=== PATIENT | male | born 1955 | race Caucasian/White ===

== ENCOUNTER → 2018-07-14 13:41 | Outpatient (CLI) | payer MEDICARE, OTHER, SELFPAY | PROVIDERS: Visit Provider Family Medicine | DX: S81.801A Unspecified open wound, right lower leg, initial encounter (principal); I70.201 Unspecified atherosclerosis of native arteries of extremities, right leg | CPT/HCPCS: 11042; 11045; 99203; 99212 ==

== ENCOUNTER → 2018-07-14 16:10 | Outpatient (CLI) | payer MEDICARE, OTHER, SELFPAY ==
[2018-07-14 18:05] LABS: BUN Creatinine Ratio 15.5 (6-22); Blood Urea Nitrogen 17 mg/dL (9-20); Calcium 9.2 mg/dL (8.4-10.2); Carbon Dioxide 30 mmol/L (22-32); Chloride 100 mmol/L (98-107); Estimated Glomerular Filt Rate > 60.0 mL/min (>60); Glucose 100 mg/dL (80-110); HEMOLYSIS < 15 (0-50); Sodium 141 mmol/L (137-145)
== END ==
PROVIDERS: Visit Provider Family Medicine
DX: S81.801A Unspecified open wound, right lower leg, initial encounter (principal)
CPT/HCPCS: 36415; 80048

== ENCOUNTER → 2018-07-21 15:30 | Outpatient (CLI) | payer MEDICARE, OTHER, SELFPAY | PROVIDERS: PCP Internal Medicine; Visit Provider Family Medicine | DX: S81.801A Unspecified open wound, right lower leg, initial encounter (principal); I70.201 Unspecified atherosclerosis of native arteries of extremities, right leg; I70.202 Unspecified atherosclerosis of native arteries of extremities, left leg | CPT/HCPCS: 11042; 87070; 87205; 93922 ==

== ENCOUNTER 2019-09-09 17:20 | Emergency (ER) | payer OTHER, MEDICARE, SELFPAY ==
[2019-09-09 17:27] VITALS: BP 169/95; PULSE 95; RESP 18; TEMP 37; O2SAT 98; BMI 25.1
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
== END 2019-09-09 18:46 | disposition home or self-care (01) ==
PROVIDERS: Emergency Provider Emergency Medicine; PCP Internal Medicine
DX: S20.211A Contusion of right front wall of thorax, initial encounter (principal); S80.811A Abrasion, right lower leg, initial encounter; M79.605 Pain in left leg; V49.40XA Driver injured in collision with unspecified motor vehicles in traffic accident, initial encounter; W22.11XA Striking against or struck by driver side automobile airbag, initial encounter
CPT/HCPCS: 71101; 73552; 99283

== ENCOUNTER 2020-11-06 10:42 | Emergency (ER) | payer MEDICARE, OTHER, SELFPAY ==
[2020-11-06] VITALS (16 sets, daily range): BP systolic 114–153; BP diastolic 67–81; PULSE 63–94; RESP 11–41; TEMP 36.7; O2SAT 96–99; BMI 24.7
--- NOTE | 2020-11-06 11:55 | ED.EXTPRO ---
HPI - Extremity Problem General Chief complaint: Extremity Problem,Nontraumatic Stated complaint: right foot cold and loosing sensation Time Seen by Provider: 11/06/20 11:48 History of Present Illness HPI Narrative: Patient is a 65-year-old male with peripheral vascular disease who has bilateral iliac stents. He apparently had an exclusion in both of them last week where he states at [facility]. He says they cleaned them out as best they could and they were both clotted off and he was released. He has been on Lovenox shots and taking Coumadin however his INR most recently was 10. He says today he woke up in they noted his right foot was cooler than the left. The left 1 is always a little bit warmer but the right 1 was cool. They were never able to find a pulse on the right foot. Worried that there may be another occlusion. Related Data Home Medications Medication Instructions Recorded Confirmed amlodipine 5 mg tablet 5 mg PO DAILY 07/21/18 07/21/18 aspirin 81 mg tablet,delayed 81 mg PO DAILY 07/21/18 07/21/18 release (Adult Aspirin Regimen) atorvastatin 80 mg tablet 80 mg PO DAILY 07/21/18 07/21/18 cholecalciferol (vitamin D3) 25 1,000 unit PO DAILY 07/21/18 07/21/18 mcg (1,000 unit) capsule gabapentin 300 mg capsule 300 mg PO DAILY 07/21/18 07/21/18 hydrocodone 5 mg-acetaminophen 325 1 tab PO Q4-6H PRN 07/21/18 07/21/18 mg tablet melatonin 3 mg tablet 3 mg PO BEDTIME PRN 07/21/18 07/21/18 pantoprazole 40 mg tablet,delayed 40 mg PO DAILY 07/21/18 07/21/18 release (Protonix) Allergies Allergy/AdvReac Type Severity Reaction Status Date / Time No Known Drug Allergies Allergy Verified 09/09/19 17:27 Review of Systems Review of Systems Narrative: GENERAL: Denies chills, fatigue, malaise, fever, sweats, travel HEENT: Denies sinus pain, ear pain, sore throat, difficulty swallowing, neck pain RESPIRATORY: Denies dyspnea, cough, wheezing, hemoptysis, sputum. CARDIOVASCULAR: Denies chest pain, palpitations, orthopnea, edema GASTROINTESTINAL: Denies nausea, vomiting, abdominal pain, diarrhea, constipation, melena. : Denies dysuria, frequency, incontinence, hematuria, urinary retention, flank pain. MUSCULOSKELETAL: See HPI SKIN: No rash, no erythema, no pruritus NEUROLOGIC: Denies weakness, dizziness, headache, numbness, change in speech, confusion PSYCHIATRIC: No concerning psychosocial issues. 12 point review of systems is negative except for those stated above and HPI Patient History Medical History (Updated 11/06/20 @ 18:39 by Nena Albright DO) Gastroesophageal reflux disease High cholesterol Social History Smoking Status: Never smoker Smoking Status: Never smoker Substance Use Type: does not use Exam Initial Vital Signs Initial Vital Signs: Vital Signs Temperature 98.0 F 11/06/20 10:51 Pulse Rate 94 H 11/06/20 10:51 Respiratory Rate 18 11/06/20 10:51 Blood Pressure 118/70 11/06/20 10:51 Pulse Oximetry 97 11/06/20 10:51 GENERAL: Well-appearing, well-nourished and in no acute distress. HEENT: Head atraumatic,EOMI, pupils reactive, face symmetric, moist mucous membranes CARDIOVASCULAR: Regular rate and rhythm without murmurs, rubs or gallops. RESPIRATORY: Breath sounds equal bilaterally, no wheezes rales or rhonchi. ABDOMEN: Soft, nontender. Normoactive bowel sounds all 4 quadrants. No guarding or rebound. EXTREMITIES: Normal range of motion, no clubbing or edema. Neurovascularly intact Right foot is cooler to touch than the left decreased cap refill not extremely tender. NEUROLOGICAL: Alert and oriented x4.Normal gait and speech. SKIN: Incision sites in abdomen appear clean and dry. Left side is more swollen and hard but no erythema Course Orders Ordered: ED Orders 11/06/20 11:17 Acetaminophen Stat Complete Blood Count AUTO DIFF Stat Comprehensive Metabolic Panel Stat Partial Thromboplastin Time Stat Prothrombin Time INR Stat 11/06/20 12:50 CT angio abd aorta runoff Stat 11/06/20 14:54 US arterial duplex LE BI Stat Discontinued Medications Acetaminophen (Acetaminophen 325 Mg Tablet) 975 mg PO NOW ONE Stop: 11/06/20 12:42 Last Admin: 11/06/20 12:44 Dose: 975 mg Documented by: ROSANNE Acetaminophen (Acetaminophen 325 Mg Tablet) 975 mg PO NOW ONE Stop: 11/06/20 18:33 Last Admin: 11/06/20 18:39 Dose: Not Given Documented by: ANASTASIIA Phytonadione (Phytonadione (Vit K1) 5 Mg Tablet) 5 mg PO NOW ONE Stop: 11/06/20 18:25 Last Admin: 11/06/20 18:40 Dose: 5 mg Documented by: ANASTASIIA Vital Signs Vital signs: Vital Signs - 8 hr 11/06/20 12:41 11/06/20 13:00 11/06/20 13:30 Pulse Rate 82 72 80 Respiratory Rate 15 21 13 Blood Pressure 148/70 H 138/77 143/76 H Pulse Oximetry 98 99 96 11/06/20 14:00 11/06/20 14:02 11/06/20 14:30 Pulse Rate 73 80 73 Respiratory Rate 15 17 18 Blood Pressure 122/70 138/72 Pulse Oximetry 97 98 96 11/06/20 15:00 11/06/20 15:30 11/06/20 16:00 Pulse Rate 77 64 71 Respiratory Rate 41 H 11 L 31 H Blood Pressure 153/81 H 140/71 129/77 Pulse Oximetry 98 98 97 11/06/20 16:30 11/06/20 17:00 11/06/20 17:30 Pulse Rate 69 67 65 Respiratory Rate 18 18 23 Blood Pressure 127/73 123/69 132/68 Pulse Oximetry 96 96 97 11/06/20 17:42 11/06/20 18:00 11/06/20 18:30 Pulse Rate 63 67 67 Respiratory Rate 15 16 16 Blood Pressure 148/71 H 127/68 114/67 Pulse Oximetry 97 98 98 MDM - Extremity (Nontraumatic) Lab Data Result diagrams: 11/06/20 11:17 11/06/20 11:17 Labs: Lab Results 11/06/20 11/06/20 11/06/20 Range/Units 11:17 11:17 11:17 WBC 9.7 (4.5-11.0) X10^3/uL RBC 4.09 L (4.5-5.9) X10^6/uL Hgb 12.5 L (13.5-17.5) g/dL Hct 37.8 L (41-53) % MCV 92.4 (80-100) fL MCH 30.6 (26-34) PG MCHC 33.2 (30-36) % RDW 14.3 (11.6-14.8) % Plt Count 307 (150-400) X10^3/uL Neut % (Auto) 73.3 (50-75) % Lymph % (Auto) 15.8 L (25-40) % Logan % (Auto) 7.0 (3-14) % Eos % (Auto) 3.2 (2-4) % Baso % (Auto) 0.7 (0-2) % Neut # (Auto) 7100 H (6783-9254) /uL Lymph # (Auto) 1500 (0690-3551) /uL Logan # (Auto) 700 (0-900) /uL Eos # (Auto) 300 (0-450) /uL Baso # (Auto) 100 (0-100) /uL PT 127.5 H (10.1-12.7) SECONDS INR 10.7 H* (0.9-1.3) APTT 53 H (26.4-36.2) SECONDS Sodium 139 (137-145) mmol/L Potassium 4.0 (3.4-5.1) mmol/L Chloride 107 (98-107) mmol/L Carbon Dioxide 24 (22-32) mmol/L BUN 18 (9-20) mg/dL Creatinine 0.88 (0.66-1.25) mg/dL Estimated GFR > 60.0 (>60) mL/min BUN/Creatinine Ratio 20.5 (6-22) Glucose 162 H (80-110) mg/dL Calcium 8.7 (8.4-10.2) mg/dL Total Bilirubin 0.6 (0.2-1.3) mg/dL AST 69 H (17-59) IU/L ALT 80 H (<50) IU/L Alkaline Phosphatase 108 (38-126) U/L Total Protein 7.5 (6.3-8.2) g/dL Albumin 3.7 (3.5-5.0) g/dL Globulin 3.8 (1.7-4.1) g/dL Albumin/Globulin Ratio 1.0 (1.0-2.8) Acetaminophen (10-30) ug/mL 11/06/20 Range/Units 11:17 WBC (4.5-11.0) X10^3/uL RBC (4.5-5.9) X10^6/uL Hgb (13.5-17.5) g/dL Hct (41-53) % MCV (80-100) fL MCH (26-34) PG MCHC (30-36) % RDW (11.6-14.8) % Plt Count (150-400) X10^3/uL Neut % (Auto) (50-75) % Lymph % (Auto) (25-40) % Logan % (Auto) (3-14) % Eos % (Auto) (2-4) % Baso % (Auto) (0-2) % Neut # (Auto) (8445-9922) /uL Lymph # (Auto) (0186-0557) /uL Logan # (Auto) (0-900) /uL Eos # (Auto) (0-450) /uL Baso # (Auto) (0-100) /uL PT (10.1-12.7) SECONDS INR (0.9-1.3) APTT (26.4-36.2) SECONDS Sodium (137-145) mmol/L Potassium (3.4-5.1) mmol/L Chloride (98-107) mmol/L Carbon Dioxide (22-32) mmol/L BUN (9-20) mg/dL Creatinine (0.66-1.25) mg/dL Estimated GFR (>60) mL/min BUN/Creatinine Ratio (6-22) Glucose (80-110) mg/dL Calcium (8.4-10.2) mg/dL Total Bilirubin (0.2-1.3) mg/dL AST (17-59) IU/L ALT (<50) IU/L Alkaline Phosphatase (38-126) U/L Total Protein (6.3-8.2) g/dL Albumin (3.5-5.0) g/dL Globulin (1.7-4.1) g/dL Albumin/Globulin Ratio (1.0-2.8) Acetaminophen < 10 L (10-30) ug/mL Imaging Data CT aorta run off: Radiologist's Impression: PROCEDURE: CT ANGIO ABD AORTA RUNOFF INDICATIONS: bilateral stents cool right foot TECHNIQUE: After the administration of intravenous contrast, 2.5 mm sections acquired from T12 to the feet, with optional delayed image acquisition from the knees to the feet. 3-dimensional maximum intensity projection (MIP) coronal and sagittal reformats, and/or 3-dimensional volume rendering reformatting was then performed. For radiation dose reduction, the following was used: automated exposure control. COMPARISON: [facility], CT, ANGIOGRAPHY ABDOMEN AND PELVIS, 09/19/2015, 8:17. FINDINGS: Image quality: Excellent. Extravascular tissues: Lung bases are clear. Heart size is normal. Liver is enlarged.. Gallbladder demonstrates dependent calcifications without wall thickening. . Biliary system is non dilated. Pancreas enhances normally. Spleen is normal in size and enhancement. No adrenal nodules. Kidneys are normal in size and enhancement, without hydronephrosis. Non opacified bowel loops demonstrate normal wall thickness and enhancement. No free fluid or air. No retroperitoneal or mesenteric adenopathy. No ventral hernias. Bladder wall thickness is normal. No inguinal hernias or adenopathy. No suspicious bony lesions. No vertebral body compression fractures. Hiatal hernia is present. There are prominent fluid collections with air identified within the groin bilaterally, the largest on the left measuring 4.3 x 5.4 cm. They become contiguous with the femoral vessels and likely related to recent intervention. Abdominal aorta: Bypass graft is noted within the distal aorta i consistent with aorto bi femoral graft. The aortic portion demonstrates partial thrombosis. Right lower extremity: There are no areas of hemodynamically significant stenosis, vascular occlusion or aneurysmal dilation within the iliac or femoral artery. Artery is widely patent. There are multiple areas of short-segment stenosis secondary to vascular calcifications within the superficial femoral artery predominantly less than 50%. The profundal artery appears patent although markedly diminutive. The popliteal artery becomes markedly diminutive with calcification. It is difficult to detect vascular flow. There are markedly diminutive heavily calcified runoff vessels. Very minimal atretic flow is identified within the posterior tibial artery extending to the foot as well as peroneal artery to the calf. The anterior tibial artery demonstrates very minimal flow within the proximal most portion without visualized mid and distal flow. Left lower extremity: The iliac and common femoral arteries are patent. There is clot identified within the proximal profundal artery with distal reconstitution. The superficial femoral artery is occluded at the origin. There is distal reconstitution with vascular flow identified in the popliteal artery. A three-vessel runoff is present. Markedly atretic anterior/posterior tibial and peroneal vessels are identified to the level of the foot. IMPRESSION: 1. Aortobifemoral graft is present with partial thrombosis in the aortic portion, appearing acute/subacute. 2. There is a partially occlusive clot within the proximal left profundal artery, suspected to be acute/subacute. 3. Left superficial femoral artery occlusion. While this may be chronic, chronicity is somewhat indeterminate. Recommend correlation with prior exams or surgical intervention. 4. Multiple areas of short-segment stenosis within the right superficial femoral artery as well as diminutive appearance of the right profunda artery. 5. Markedly diminutive and calcified runoff vessels on the right with the anterior tibial artery appearing occluded proximally. This is also of indeterminate age. 6. Poorly visualized flow within the right popliteal artery suspicious for acute occlusion. The above findings were discussed with Dr. Nena Albright on 11/06/2020 at 3:00 p.m.. Dictated by: Maggie Olivas M.D. on 11/06/2020 at 14:00 Approved by: Maggie Olivas M.D. on 11/06/2020 at 15:30 US artery: Radiologist's Impression: PROCEDURE: US ARTERIAL DUPLEX LE BI INDICATIONS: POSSIBLE BILATERAL GROIN PSEUDOANEURYSMS TECHNIQUE: Color and pulse Doppler interrogation was performed of both lower extremity arterial systems, with image documentation. COMPARISON: [facility], CT, CT ANGIO ABD AORTA RUNOFF, 11/06/2020, 12:25. FINDINGS: Right groin: There is soft tissue edema in groin bilaterally. The right common femoral artery and veins are both patent. No definitive pseudoaneurysm or AV fistula is identified. There is a 4.0 x 1.7 x 3.8 cm fluid collection in the right groin compatible with a hematoma. Left lower extremity: There is soft tissue edema in groin bilaterally. The left common femoral artery and veins are both patent. No definitive pseudoaneurysm or AV fistula is identified. There is a 8.0 x 3.2 x 4.9 cm fluid collection in the left groin compatible with a hematoma. IMPRESSION: 1. No definitive pseudoaneurysms or AV fistulas. The examination, however, is limited because of prominent soft tissue edema in the groin bilaterally. 2. There is a 4.0 x 1.7 x 3.8 cm fluid collection in the right groin consistent with a hematoma given recent procedure. 3. There is a 8.0 x 3.2 x 4.9 cm fluid collection in the left groin compatible with a hematoma given the recent procedure. Dictated by: Gogo Mackenzie M.D. on 11/06/2020 at 17:12 Approved by: Gogo Mackenzie M.D. on 11/06/2020 at 17:25 [facility] Narrative Medical decision making narrative: Patient is found to have supratherapeutic INR of 10 with no active bleeding. Difficult to tell if CT findings are actually acute or chronic. Patient is really asymptomatic. His feels his feet every day noticed that the right 1 with slightly cooler than the left today. He has no pain or difficulty walking. He previously had difficulty walking when his stents were occluded last week. 1800 Dr. Kraus vascular surgery at [facility] has reviewed CT today. She says that there is severe clot burden which is what she would expect. Does not seem to have any new findings today. Does recommend vitamin K today and holding Coumadin for his supratherapeutic INR. She does recommending continuing Lovenox. Requests his INR be recheck tomorrow, I recommend he come to the emergency department for an INR check. She states that they are happy to see and follow up with him in 2 days on , as opposed to next week. Patient states he is actually supposed to see his vascular surgeon Dr. Ramirez in [place] next week on November 14.I Recommend he see both [facility] this week and that physician next week Discharge Plan Departure Patient Disposition: Home Clinical Impression: Peripheral vascular disease, Elevated INR Instructions: Peripheral Artery Disease Activity Restrictions/Additional Instructions: *You have been diagnosed with peripheral vascular disease and elevated INR *What to do: At this time you need to have your INR recheck tomorrow. You are more than welcome to come back to the emergency department have it rechecked [facility] should call and schedule follow-up appointment for . It is important that we monitor your INR. *Continue to take medications as directed HOLD COUMADIN UNTIL FURTHER INSTRUCTIONS YOU MAY TAKE LOVENOX TOMORROW *Follow up with your primary care provider in 2-3 days *Return to ER if you should have bleeding, weakness or pain in feet, or any new, worsening or concerning symptoms Prescriptions: No Action atorvastatin 80 mg tablet 80 mg PO DAILY RF: 0 hydrocodone-acetaminophen 5-325 mg tablet 1 tab PO Q4-6H PRNRF: 0 melatonin 3 mg tablet 3 mg PO BEDTIME PRNRF: 0 amlodipine 5 mg tablet 5 mg PO DAILY RF: 0 aspirin [Adult Aspirin Regimen] 81 mg tablet,delayed release (DR/EC) 81 mg PO DAILY RF: 0 pantoprazole [Protonix] 40 mg tablet,delayed release (DR/EC) 40 mg PO DAILY RF: 0 gabapentin 300 mg capsule 300 mg PO DAILY RF: 0 cholecalciferol (vitamin D3) 1,000 unit capsule 1,000 unit PO DAILY RF: 0 Referrals: Rosi Samayoa MD [Primary Care Provider] - Monae Ramirez MD [Non-Staff] -
[2020-11-06 12:17] LABS: Add Manual Diff / Slide Review NO; Basophils Absolute Auto 100 /uL (0-100); Basophils Percent Auto 0.7 % (0-2); Eosinophils Absolute Auto 300 /uL (0-450); Eosinophils Percent Auto 3.2 % (2-4); Hematocrit 37.8 % (41-53); Hemoglobin 12.5 g/dL (13.5-17.5); Lymphocytes Absolute Auto 1500 /uL (1100-4500); Lymphocytes Percent Auto 15.8 % (25-40); Mean Corpuscular HGB Conc 33.2 % (30-36); Mean Corpuscular Hemoglobin 30.6 PG (26-34); Mean Corpuscular Volume 92.4 fL (80-100); Monocytes Absolute Auto 700 /uL (0-900); Neutrophils Absolute Auto 7100 /uL (1500-7000); Neutrophils Percent Auto 73.3 % (50-75); Platelet Count 307 X10^3/uL (150-400); Red Blood Cell Count 4.09 X10^6/uL (4.5-5.9); Red Cell Distribution Width 14.3 % (11.6-14.8); White Blood Cell Count 9.7 X10^3/uL (4.5-11.0)
[2020-11-06 12:21] LABS: PTT Partial Thromboplastin Tim 53 SECONDS (26.4-36.2)
[2020-11-06 12:23] LABS: Alanine Aminotransferase 80 IU/L (<50); Albumin 3.7 g/dL (3.5-5.0); Alkaline Phosphatase 108 U/L (38-126); Aspartate Aminotransferase 69 IU/L (17-59); BUN Creatinine Ratio 20.5 (6-22); Bilirubin Total 0.6 mg/dL (0.2-1.3); Blood Urea Nitrogen 18 mg/dL (9-20); Calcium 8.7 mg/dL (8.4-10.2); Carbon Dioxide 24 mmol/L (22-32); Chloride 107 mmol/L (98-107); Estimated Glomerular Filt Rate > 60.0 mL/min (>60); Globulin 3.8 g/dL (1.7-4.1); Glucose 162 mg/dL (80-110); HEMOLYSIS < 15 (0-50); Sodium 139 mmol/L (137-145); Total Protein 7.5 g/dL (6.3-8.2)
[2020-11-06 12:25] LABS: Prothrombin Time 127.5 SECONDS (10.1-12.7)
[2020-11-06 12:28] LABS: INR 10.7 (0.9-1.3)
[2020-11-06] MEDS: ACETAMINOPHEN 325 MG TABLET 975 MG PO (12:44)
--- NOTE | 2020-11-06 12:50 | DI.CT.S_ITS ---
PROCEDURE: CT ANGIO ABD AORTA RUNOFF INDICATIONS: bilateral stents cool right foot TECHNIQUE: After the administration of intravenous contrast, 2.5 mm sections acquired from T12 to the feet, with optional delayed image acquisition from the knees to the feet. 3-dimensional maximum intensity projection (MIP) coronal and sagittal reformats, and/or 3-dimensional volume rendering reformatting was then performed. For radiation dose reduction, the following was used: automated exposure control. COMPARISON: [facility], CT, ANGIOGRAPHY ABDOMEN AND PELVIS, 09/19/2015, 8:17. FINDINGS: Image quality: Excellent. Extravascular tissues: Lung bases are clear. Heart size is normal. Liver is enlarged.. Gallbladder demonstrates dependent calcifications without wall thickening. . Biliary system is non dilated. Pancreas enhances normally. Spleen is normal in size and enhancement. No adrenal nodules. Kidneys are normal in size and enhancement, without hydronephrosis. Non opacified bowel loops demonstrate normal wall thickness and enhancement. No free fluid or air. No retroperitoneal or mesenteric adenopathy. No ventral hernias. Bladder wall thickness is normal. No inguinal hernias or adenopathy. No suspicious bony lesions. No vertebral body compression fractures. Hiatal hernia is present. There are prominent fluid collections with air identified within the groin bilaterally, the largest on the left measuring 4.3 x 5.4 cm. They become contiguous with the femoral vessels and likely related to recent intervention. Abdominal aorta: Bypass graft is noted within the distal aorta i consistent with aorto bi femoral graft. The aortic portion demonstrates partial thrombosis. Right lower extremity: There are no areas of hemodynamically significant stenosis, vascular occlusion or aneurysmal dilation within the iliac or femoral artery. Artery is widely patent. There are multiple areas of short-segment stenosis secondary to vascular calcifications within the superficial femoral artery predominantly less than 50%. The profundal artery appears patent although markedly diminutive. The popliteal artery becomes markedly diminutive with calcification. It is difficult to detect vascular flow. There are markedly diminutive heavily calcified runoff vessels. Very minimal atretic flow is identified within the posterior tibial artery extending to the foot as well as peroneal artery to the calf. The anterior tibial artery demonstrates very minimal flow within the proximal most portion without visualized mid and distal flow. Left lower extremity: The iliac and common femoral arteries are patent. There is clot identified within the proximal profundal artery with distal reconstitution. The superficial femoral artery is occluded at the origin. There is distal reconstitution with vascular flow identified in the popliteal artery. A three-vessel runoff is present. Markedly atretic anterior/posterior tibial and peroneal vessels are identified to the level of the foot. IMPRESSION: 1. Aortobifemoral graft is present with partial thrombosis in the aortic portion, appearing acute/subacute. 2. There is a partially occlusive clot within the proximal left profundal artery, suspected to be acute/subacute. 3. Left superficial femoral artery occlusion. While this may be chronic, chronicity is somewhat indeterminate. Recommend correlation with prior exams or surgical intervention. 4. Multiple areas of short-segment stenosis within the right superficial femoral artery as well as diminutive appearance of the right profunda artery. 5. Markedly diminutive and calcified runoff vessels on the right with the anterior tibial artery appearing occluded proximally. This is also of indeterminate age. 6. Poorly visualized flow within the right popliteal artery suspicious for acute occlusion. The above findings were discussed with Dr. Nena Albright on 11/06/2020 at 3:00 p.m.. Dictated by: Maggie Olivas M.D. on 11/06/2020 at 14:00 Approved by: Maggie Olivas M.D. on 11/06/2020 at 15:30
--- NOTE | 2020-11-06 14:54 | DI.US.S_ITS ---
PROCEDURE: US ARTERIAL DUPLEX LE BI INDICATIONS: POSSIBLE BILATERAL GROIN PSEUDOANEURYSMS TECHNIQUE: Color and pulse Doppler interrogation was performed of both lower extremity arterial systems, with image documentation. COMPARISON: [facility], CT, CT ANGIO ABD AORTA RUNOFF, 11/06/2020, 12:25. FINDINGS: Right groin: There is soft tissue edema in groin bilaterally. The right common femoral artery and veins are both patent. No definitive pseudoaneurysm or AV fistula is identified. There is a 4.0 x 1.7 x 3.8 cm fluid collection in the right groin compatible with a hematoma. Left lower extremity: There is soft tissue edema in groin bilaterally. The left common femoral artery and veins are both patent. No definitive pseudoaneurysm or AV fistula is identified. There is a 8.0 x 3.2 x 4.9 cm fluid collection in the left groin compatible with a hematoma. IMPRESSION: 1. No definitive pseudoaneurysms or AV fistulas. The examination, however, is limited because of prominent soft tissue edema in the groin bilaterally. 2. There is a 4.0 x 1.7 x 3.8 cm fluid collection in the right groin consistent with a hematoma given recent procedure. 3. There is a 8.0 x 3.2 x 4.9 cm fluid collection in the left groin compatible with a hematoma given the recent procedure. Dictated by: Gogo Mackenzie M.D. on 11/06/2020 at 17:12 Approved by: Gogo Mackenzie M.D. on 11/06/2020 at 17:25
[2020-11-06 18:39] LABS: Acetaminophen < 10 ug/mL (10-30)
[2020-11-06] MEDS: PHYTONADIONE (VIT K1) 5 MG TABLET PO (18:40)
== END 2020-11-06 19:17 | disposition home or self-care (01) ==
PROVIDERS: Emergency Provider Emergency Medicine; PCP Internal Medicine
DX: I73.9 Peripheral vascular disease, unspecified (principal); R79.1 Abnormal coagulation profile
CPT/HCPCS: 36415; 75635; 80053; 80329; 85025; 85610; 85730; 93925; 99284; G0480

== ENCOUNTER 2020-11-07 08:51 | Emergency (ER) | payer MEDICARE, OTHER, SELFPAY ==
[2020-11-07 09:04] VITALS: BP 138/72; PULSE 79; RESP 17; TEMP 36.5; O2SAT 96
--- NOTE | 2020-11-07 09:05 | ED.RECABL ---
HPI - Recheck/Abnormal Lab/Rx General Chief Complaint: Recheck/Abnormal Lab/Rx Stated Complaint: still in pain from last night/recheck labs Time Seen by Provider: 11/07/20 08:53 Source: patient, family and old records reviewed History of Present Illness HPI narrative: This is a 65-year-old male who reports returns for repeat INR today. Patient was seen yesterday with concern for discoloration of his LEs lower extremities and pain after having bilateral iliac stents with occlusion of both last week when he was at [facility]. He states they cleaned the both out as well as they could but they were both clotted off. They put him on Lovenox shots and he was taking Coumadin but his outpatient INR was 10 and he was referred here to the emergency department. At that time they had noted that the color his feet for bluish in color and he had coolness. Patient worried there may be another occlusion. Patient was found to be INR of 10 here, case was discussed with his medical team [facility] he was given vitamin K and asked to return today for repeat INR for re-evaluation. Patient's coloration is improved. He has continued to have the same pain that he had had postoperatively starting Thursday through the weekend. He states not worsened but he has tried a dose of oral [place] at home with his usual gabapentin and Tylenol ibuprofen with minimal improvement. Patient states he does not wish to take oxycodone, he is reluctant to take most narcotics. Related Data Home Medications Medication Instructions Recorded Confirmed amlodipine 5 mg tablet 5 mg PO DAILY 07/21/18 07/21/18 aspirin 81 mg tablet,delayed 81 mg PO DAILY 07/21/18 07/21/18 release (Adult Aspirin Regimen) atorvastatin 80 mg tablet 80 mg PO DAILY 07/21/18 07/21/18 cholecalciferol (vitamin D3) 25 1,000 unit PO DAILY 07/21/18 07/21/18 mcg (1,000 unit) capsule gabapentin 300 mg capsule 300 mg PO DAILY 07/21/18 07/21/18 hydrocodone 5 mg-acetaminophen 325 1 tab PO Q4-6H PRN 07/21/18 07/21/18 mg tablet melatonin 3 mg tablet 3 mg PO BEDTIME PRN 07/21/18 07/21/18 pantoprazole 40 mg tablet,delayed 40 mg PO DAILY 07/21/18 07/21/18 release (Protonix) Previous Rx's Medication Instructions Recorded hydrocodone 5 mg-acetaminophen 325 1 tab PO Q6H PRN #10 tab 11/07/20 mg tablet Allergies Allergy/AdvReac Type Severity Reaction Status Date / Time No Known Drug Allergies Allergy Verified 09/09/19 17:27 Review of Systems Review of Systems ROS Unobtainable: All systems reviewed & are unremarkable except as noted in HPI and below Patient History Medical History (Updated 11/07/20 @ 09:08 by Becki Avina DO) Gastroesophageal reflux disease High cholesterol Social History Smoking Status: Never smoker Smoking Status: Never smoker Substance Use Type: does not use Exam Narrative Exam Narrative: GENERAL: Alert and oriented x three, well-nourished male in mild distress. Patient is seated in wheelchair which he arrived in. HEENT: Head normocephalic, atraumatic, EOMI, pupils reactive, face symmetric, moist mucous membranes NECK: Supple, full range of motion CARDIOVASCULAR: Regular rate and rhythm without murmurs, rubs or gallops. RESPIRATORY: Breath sounds equal bilaterally, no wheezes rales or rhonchi. ABDOMEN: Soft, nontender. Normoactive bowel sounds all 4 quadrants. No guarding or rebound, rigidity, no mass : No CVA tenderness EXTREMITIES: Normal range of motion, no clubbing or edema. Patient has sensation to touch in bilateral lower extremities. Cap refill is less than 2 seconds in both feet. No pallor or cyanosis appreciated. Palpable pulse. NEUROLOGICAL: Cranial nerves II through XII grossly intact. Moving all extremities SKIN: Warm, dry, no petechiae, no rashes or lesions. Initial Vital Signs Initial Vital Signs: Vital Signs Temperature 97.7 F 11/07/20 09:04 Pulse Rate 79 11/07/20 09:04 Respiratory Rate 17 11/07/20 09:04 Blood Pressure 138/72 11/07/20 09:04 Pulse Oximetry 96 11/07/20 09:04 Course Orders Ordered: Discontinued Medications Hydrocodone Bitart/Acetaminophen (Hydrocodone/Acet 5/325 Tablet) 2 tab PO NOW ONE Stop: 11/07/20 09:06 Last Admin: 11/07/20 09:27 Dose: 2 tab Documented by: AUPDIKE Reevaluation(s) Reevaluation #1: Updated patient on INR results I did speak with pharmacy who states that half life for oral vitamin K as 24-48 hours. Patient has not had his Lovenox today and was encouraged to take it shot since his INR is 2.1 and will likely trend downward further patient is also to continue his Coumadin and has the ability to have his INR rechecked again tomorrow as an outpatient or return here for again repeat check. He does have follow-up on with his team at [facility]. Patient had some pain medication as he has had some pain, he was offered a prescription for [place] but defers. Return precautions were discussed with patient and family. They also have his team in [place] was also very familiar with the patient Dr. Ramirez and was encouraged to touch base with them. MDM - Recheck/Abnormal Lab/Rx Lab Data Labs: Lab Results 11/07/20 Range/Units 09:09 PT 31.7 H D (10.1-12.7) SECONDS INR 2.8 H (0.9-1.3) Discharge Plan Departure Patient Disposition: Home Clinical Impression: Elevated INR Activity Restrictions/Additional Instructions: Follow-up with your vascular team on as planned. Contact them if you feel your unable to travel. Your INR today is 2.8 (Goal INR is 2-3) The Vitamin K you were given dose not reach peak effect until 24-48 hour range so I would recommend you use your injection of lovenox today. You may return for INR recheck tomorrow/ or there is lab slip if you prefer to have it drawn as an outpatient. Prescription to [facility] [place]. Please return for any worsening symptoms, discoloration of her extremities, loss of sensation, rapidly worsening pain, fevers, chest pain or shortness of breath, persistent vomiting, signs of bruising or bleeding or other new or concerning symptoms. Prescriptions: New hydrocodone-acetaminophen 5-325 mg tablet 1 tab PO Q6H PRN (Reason: pain) Qty: 10 RF: 0 No Action atorvastatin 80 mg tablet 80 mg PO DAILY RF: 0 hydrocodone-acetaminophen 5-325 mg tablet 1 tab PO Q4-6H PRNRF: 0 melatonin 3 mg tablet 3 mg PO BEDTIME PRNRF: 0 amlodipine 5 mg tablet 5 mg PO DAILY RF: 0 aspirin [Adult Aspirin Regimen] 81 mg tablet,delayed release (DR/EC) 81 mg PO DAILY RF: 0 pantoprazole [Protonix] 40 mg tablet,delayed release (DR/EC) 40 mg PO DAILY RF: 0 gabapentin 300 mg capsule 300 mg PO DAILY RF: 0 cholecalciferol (vitamin D3) 1,000 unit capsule 1,000 unit PO DAILY RF: 0 Referrals: Tesha Holden MD [Primary Care Provider] -
[2020-11-07 09:22] LABS: INR 2.8 (0.9-1.3); Prothrombin Time 31.7 SECONDS (10.1-12.7)
[2020-11-07] MEDS: HYDROCODONE/ACET 5/325 TABLET 2 TAB PO (09:27)
[2020-11-07 09:41] VITALS: BP 134/78; PULSE 81; RESP 16; O2SAT 97
== END 2020-11-07 09:42 | disposition home or self-care (01) ==
PROVIDERS: Emergency Provider Emergency Medicine; PCP Internal Medicine
DX: R79.1 Abnormal coagulation profile (principal); M79.605 Pain in left leg; M79.604 Pain in right leg
CPT/HCPCS: 85610; 99283

== ENCOUNTER 2020-11-08 08:32 | Emergency (ER) | payer MEDICARE, OTHER, SELFPAY ==
[2020-11-08 08:40] VITALS: BP 117/66; PULSE 85; RESP 16; TEMP 37.2; O2SAT 99; BMI 24.7
[2020-11-08 10:00] LABS: Add Manual Diff / Slide Review NO; Basophils Absolute Auto 100 /uL (0-100); Basophils Percent Auto 0.8 % (0-2); Eosinophils Absolute Auto 400 /uL (0-450); Eosinophils Percent Auto 3.1 % (2-4); Hematocrit 36.8 % (41-53); Hemoglobin 12.4 g/dL (13.5-17.5); Lymphocytes Absolute Auto 1600 /uL (1100-4500); Lymphocytes Percent Auto 12.9 % (25-40); Mean Corpuscular HGB Conc 33.7 % (30-36); Mean Corpuscular Hemoglobin 30.9 PG (26-34); Mean Corpuscular Volume 91.7 fL (80-100); Monocytes Absolute Auto 900 /uL (0-900); Neutrophils Absolute Auto 9500 /uL (1500-7000); Neutrophils Percent Auto 76.2 % (50-75); Platelet Count 379 X10^3/uL (150-400); Red Blood Cell Count 4.01 X10^6/uL (4.5-5.9); Red Cell Distribution Width 13.7 % (11.6-14.8); White Blood Cell Count 12.5 X10^3/uL (4.5-11.0)
[2020-11-08 10:05] LABS: INR 2.9 (0.9-1.3); Prothrombin Time 32.8 SECONDS (10.1-12.7)
[2020-11-08 11:29] VITALS: PULSE 73; O2SAT 95
[2020-11-08 11:30] VITALS: PULSE 70; O2SAT 98
[2020-11-08 11:34] VITALS: BP 174/76; PULSE 74; RESP 17; O2SAT 97
[2020-11-08 12:00] VITALS: BP 130/62; PULSE 79; O2SAT 97
--- NOTE | 2020-11-08 12:08 | ED_ITS ---
HPI - Extremity Problem General Stated complaint: groin stent bleeding Time Seen by Provider: 11/08/20 12:08 Source: patient and family Mode of arrival: Wheelchair Limitations: no limitations History of Present Illness HPI Narrative: This is a 65-year-old male who was seen by myself yesterday for same issues. He came today for repeat INR, he is still in a therapeutic range. He has completed his Lovenox. And continuing his oral warfarin. He had some slight oozing from his site which is not unexpected with his goal INR. He has not had any worsening bleeding. He denies fevers, chills, rapidly worsening abdominal pain. He has continued swelling in his scrotum but not significantly worsened as well as bruising. Not had any infectious signs at his incision sites. Patient denies any other concerns at this time. Related Data Home Medications Medication Instructions Recorded Confirmed amlodipine 5 mg tablet 5 mg PO DAILY 07/21/18 07/21/18 aspirin 81 mg tablet,delayed 81 mg PO DAILY 07/21/18 07/21/18 release (Adult Aspirin Regimen) atorvastatin 80 mg tablet 80 mg PO DAILY 07/21/18 07/21/18 cholecalciferol (vitamin D3) 25 1,000 unit PO DAILY 07/21/18 07/21/18 mcg (1,000 unit) capsule gabapentin 300 mg capsule 300 mg PO DAILY 07/21/18 07/21/18 hydrocodone 5 mg-acetaminophen 325 1 tab PO Q4-6H PRN 07/21/18 07/21/18 mg tablet melatonin 3 mg tablet 3 mg PO BEDTIME PRN 07/21/18 07/21/18 pantoprazole 40 mg tablet,delayed 40 mg PO DAILY 07/21/18 07/21/18 release (Protonix) Previous Rx's Medication Instructions Recorded hydrocodone 5 mg-acetaminophen 325 1 tab PO Q6H PRN #10 tab 11/07/20 mg tablet Allergies Allergy/AdvReac Type Severity Reaction Status Date / Time No Known Drug Allergies Allergy Verified 11/08/20 08:40 Review of Systems Review of Systems ROS Unobtainable: All systems reviewed & are unremarkable except as noted in HPI and below Patient History Medical History (Updated 11/08/20 @ 12:28 by Becki Avina DO) Gastroesophageal reflux disease High cholesterol Social History (Reviewed 09/10/19 @ 01:53 by PAL Ferraro Smoking Status: Never smoker Smoking Status: Never smoker Substance Use Type: does not use Exam Narrative Exam Narrative: GENERAL: Alert and oriented x three, well-nourished male in mild distress. HEENT: Head normocephalic, atraumatic, EOMI, pupils reactive, face symmetric, moist mucous membranes NECK: Supple, full range of motion CARDIOVASCULAR: Regular rate and rhythm without murmurs, rubs or gallops. RESPIRATORY: Breath sounds equal bilaterally, no wheezes rales or rhonchi. ABDOMEN: Soft, nontender. Normoactive bowel sounds all 4 quadrants. No guarding or rebound, rigidity, no mass : No CVA tenderness, patient has inguinal ecchymosis with incisions in the bilateral inguinal region which are clean, dry and intact. The right incision has some dried blood but no active bleeding. Patient has ecchymosis bilaterally and extending into the scrotum with some fairly significant scrotal swelling. Patient does have tenderness with palpation. There is no warmth or erythema appreciated. EXTREMITIES: Normal range of motion, no clubbing or edema. Neurovascularly intact NEUROLOGICAL: Cranial nerves II through XII grossly intact. Moving all extremities SKIN: Warm, dry, no petechiae, no rashes or lesions. Initial Vital Signs Initial Vital Signs: Vital Signs Temperature 98.9 F 11/08/20 08:40 Pulse Rate 85 11/08/20 08:40 Respiratory Rate 16 11/08/20 08:40 Blood Pressure 117/66 11/08/20 08:40 Pulse Oximetry 99 11/08/20 08:40 Course Orders Ordered: Discontinued Medications Hydrocodone Bitart/Acetaminophen (Hydrocodone/Acet 5/325 Tablet) 1 tab PO NOW ONE Stop: 11/08/20 12:25 Last Admin: 11/08/20 12:34 Dose: 1 tab Documented by: ARBEN Vital Signs Vital signs: Vital Signs - 8 hr 11/08/20 13:00 Pulse Rate 71 Blood Pressure 140/70 Pulse Oximetry 98 MDM - Extremity (Nontraumatic) Lab Data Result diagrams: 11/08/20 09:51 Labs: Lab Results 11/08/20 11/08/20 Range/Units 09:51 09:51 WBC 12.5 H (4.5-11.0) X10^3/uL RBC 4.01 L (4.5-5.9) X10^6/uL Hgb 12.4 L (13.5-17.5) g/dL Hct 36.8 L (41-53) % MCV 91.7 (80-100) fL MCH 30.9 (26-34) PG MCHC 33.7 (30-36) % RDW 13.7 (11.6-14.8) % Plt Count 379 (150-400) X10^3/uL Neut % (Auto) 76.2 H (50-75) % Lymph % (Auto) 12.9 L (25-40) % [place] % (Auto) 7.0 (3-14) % Eos % (Auto) 3.1 (2-4) % Baso % (Auto) 0.8 (0-2) % Neut # (Auto) 9500 H (3678-0250) /uL Lymph # (Auto) 1600 (1649-7782) /uL [place] # (Auto) 900 (0-900) /uL Eos # (Auto) 400 (0-450) /uL Baso # (Auto) 100 (0-100) /uL PT 32.8 H (10.1-12.7) SECONDS INR 2.9 H (0.9-1.3) MDM Narrative Medical decision making narrative: 65-year-old male comes emergency department with recheck. Patient's INR is continuing to be therapeutic and is not supratherapeutic. Completed his Lovenox injections. He is going to continue with his oral warfarin. He had can follow-up tomorrow with the [facility] for I NR recheck and has already set this up himself. Patient has some dried blood in his incision. It otherwise looks to be healing well. He has not had rapidly worsening bruising but is uncomfortable. Patient's hemoglobin is stable in comparison to yesterday so I do not suspect any acute bleed. Patient feels comfortable turning home at this time. He did find 2 [place]. Be a bit much but 1 [place] was helpful for his pain and was encouraged just to take 1 at a time and return for any worsening symptoms. Patient has follow-up this following week. He has been in touch with his with the surgeons at [facility] as well. Discharge Plan Departure Patient Disposition: Home Clinical Impression: Elevated INR (international normalized ratio), Postoperative bleeding from incision Activity Restrictions/Additional Instructions: [facility] the [facility] [employer] to have your INR rechecked Your INR level today is 2.9 Follow-up with your physician at [place] on for recheck. Continue with your oral Coumadin daily. You may continue with [place] 1 tablet every 6 hours as needed for pain. Wound Care: Keep wound(s) clean and dry. Wash daily with soap and water only. Do not use over the counter products (alcohol or peroxide)on the wounds unless instructed by a physician. Leave Surgicel in place. If wound condition worsens (increased/expanding redness, developing fluid bliste rs, or worsening pain), either contact your doctor for an urgent re-assessment , or return to the Emergency Department. Return if fever greater than 100.4 Fahrenheit, increased swelling, increasing pa in or worsening symptoms such as increased discharge or spreading redness. Rapidly worsening swelling, increasing pain, chest pain, shortness of breath, dizziness or lightheadedness, bruising that is extending down your legs, inappropriate bleeding or other new or concerning changes Prescriptions: No Action atorvastatin 80 mg tablet 80 mg PO DAILY RF: 0 hydrocodone-acetaminophen 5-325 mg tablet 1 tab PO Q4-6H PRNRF: 0 melatonin 3 mg tablet 3 mg PO BEDTIME PRNRF: 0 amlodipine 5 mg tablet 5 mg PO DAILY RF: 0 aspirin [Adult Aspirin Regimen] 81 mg tablet,delayed release (DR/EC) 81 mg PO DAILY RF: 0 pantoprazole [Protonix] 40 mg tablet,delayed release (DR/EC) 40 mg PO DAILY RF: 0 gabapentin 300 mg capsule 300 mg PO DAILY RF: 0 cholecalciferol (vitamin D3) 1,000 unit capsule 1,000 unit PO DAILY RF: 0 hydrocodone-acetaminophen 5-325 mg tablet 1 tab PO Q6H PRN (Reason: pain) Qty: 10 RF: 0 Referrals: Tesha Holden MD [Primary Care Provider] -
[2020-11-08] MEDS: HYDROCODONE/ACET 5/325 TABLET 1 TAB PO (12:34)
[2020-11-08 13:00] VITALS: BP 140/70; PULSE 71; O2SAT 98
== END 2020-11-08 13:03 | disposition home or self-care (01) ==
PROVIDERS: Emergency Provider Emergency Medicine; PCP Internal Medicine
DX: R79.1 Abnormal coagulation profile (principal); I97.610 Postprocedural hemorrhage of a circulatory system organ or structure following a cardiac catheterization
CPT/HCPCS: 36415; 85025; 85610; 99283

== ENCOUNTER → 2020-12-24 11:02 | Outpatient (CLI) | payer MEDICARE, OTHER, SELFPAY | PROVIDERS: PCP Internal Medicine; Referring Provider Surgery; Visit Provider Family Medicine | DX: S31.109A Unspecified open wound of abdominal wall, unspecified quadrant without penetration into peritoneal cavity, initial encounter (principal); T82.898S Other specified complication of vascular prosthetic devices, implants and grafts, sequela; B95.62 Methicillin resistant Staphylococcus aureus infection as the cause of diseases classified elsewhere; G90.09 Other idiopathic peripheral autonomic neuropathy; Z79.01 Long term (current) use of anticoagulants; Z79.2 Long term (current) use of antibiotics | CPT/HCPCS: 11042; 97605; 99213; 99214 ==

== ENCOUNTER 2020-12-25 02:29 | Emergency (ER) | payer MEDICARE, OTHER, SELFPAY ==
--- NOTE | 2020-12-25 02:38 | ED_ITS ---
HPI - Extremity Problem General Chief complaint: Wound/Laceration Stated complaint: wound vac is not working Time Seen by Provider: 12/25/20 02:37 History of Present Illness HPI Narrative: 65-year-old male nonsmoker with history of peripheral vascular disease presents with a chief complaint of alarms coming from his wound VAC. he states that in the end of October he had a vascular surgery it is groin in [place] him with stent placement and has had wound care locally in the aftermath. He was at the wound care office today and had an evaluation and when the wound VAC was replaced it was functioning properly until about 1:00 a.m. this morning when he started alarming for a blockage. He went through his typical problem-solving steps and when he was unsuccessful was instructed to present to the emergency department for evaluation. He states he does not feel suction in either of the locations in his groin but is otherwise well. Denies numbness, tingling or weakness Related Data Home Medications Medication Instructions Recorded Confirmed amlodipine 5 mg tablet 5 mg PO DAILY 07/21/18 07/21/18 aspirin 81 mg tablet,delayed 81 mg PO DAILY 07/21/18 07/21/18 release (Adult Aspirin Regimen) atorvastatin 80 mg tablet 80 mg PO DAILY 07/21/18 07/21/18 cholecalciferol (vitamin D3) 25 1,000 unit PO DAILY 07/21/18 07/21/18 mcg (1,000 unit) capsule gabapentin 300 mg capsule 300 mg PO DAILY 07/21/18 07/21/18 hydrocodone 5 mg-acetaminophen 325 1 tab PO Q4-6H PRN 07/21/18 07/21/18 mg tablet melatonin 3 mg tablet 3 mg PO BEDTIME PRN 07/21/18 07/21/18 pantoprazole 40 mg tablet,delayed 40 mg PO DAILY 07/21/18 07/21/18 release (Protonix) Previous Rx's Medication Instructions Recorded hydrocodone 5 mg-acetaminophen 325 1 tab PO Q6H PRN #10 tab 11/07/20 mg tablet Allergies Allergy/AdvReac Type Severity Reaction Status Date / Time No Known Drug Allergies Allergy Verified 12/25/20 02:44 Review of Systems Review of Systems Narrative: GENERAL: Denies chills, fatigue, malaise, fever, sweats. HEENT: Denies sinus pain, ear pain, sore throat, difficulty swallowing, dizziness. RESPIRATORY: Denies dyspnea, cough, wheezing, hemoptysis, sputum. CARDIOVASCULAR: Denies chest pain, palpitations, orthopnea, edema, GASTROINTESTINAL: Denies nausea, vomiting, abdominal pain, diarrhea, constipation, melena. : Denies dysuria, frequency, incontinence, hematuria, urinary retention. MUSCULOSKELETAL: denies weakness, joint pain, or bony pain SKIN: Denies rash, skin lesions, or other NEUROLOGIC: Denies weakness, headache, numbness, change in speech, confusion, seizures, incoordination. PSYCHIATRIC: No concerning psychosocial issues. 12 point review of systems is negative except for those stated above Patient History Medical History (Updated 12/25/20 @ 04:11 by Jesús Brown DO) Gastroesophageal reflux disease High cholesterol Social History Smoking Status: Never smoker Smoking Status: Never smoker Substance Use Type: does not use Exam Narrative Exam Narrative: GEN: AOx3 and in mild distress EYES: Pupils are equal, round, and reactive to light and accommodation. Extraoccular muscles are intact bilaterally. There is no subconjunctival hemorrhage or exudate. CHEST: Lungs are clear to auscultation bilaterally and free of wheezes, rales, or rhonchi. Heart rate is regular rhythm, there are no murmurs, clicks, rubs, or gallops. There is no chest wall tenderness. ABD: Abdomen is soft and nontender. There is no guarding or rebound. Bowel sounds are normal in all 4 quadrants. There is no mass or organomegaly. EXT: Wound VAC in place bilateral groin, no obvious leak or blockage when following the tubing. Full painless ROM of all extremities with no loss of sensation or strength. SKIN: Warm, pink, and dry. No erythema or rash Initial Vital Signs Initial Vital Signs: Vital Signs Temperature 97.6 F 12/25/20 02:45 Pulse Rate 73 12/25/20 02:45 Respiratory Rate 18 12/25/20 02:45 Blood Pressure 158/73 H 12/25/20 02:45 Pulse Oximetry 98 12/25/20 02:45 Course Vital Signs Vital signs: Vital Signs - 8 hr 12/25/20 02:45 Temperature 97.6 F Pulse Rate 73 Respiratory Rate 18 Blood Pressure 158/73 H Pulse Oximetry 98 MDM - Extremity (Nontraumatic) MDM Narrative Medical decision making narrative: Wound care supplies found and once the canisters change does function appropriately no leaks or blocks noted. Patient can feel intact section at the wounds. Return precautions given and questions answered to his apparent satisfaction Discharge Plan Departure Patient Disposition: Home Clinical Impression: Encounter for management of vacuum-assisted closure (VAC) of wound Instructions: How to Care for a Surgical Wound Activity Restrictions/Additional Instructions: *You have been diagnosed with [wound VAC problem] *What to do: *Please continue to take your regular medications as directed. [ ] New medication prescriptions sent to your pharmacy: [ ] [ ] New medication written as a paper prescription [x ] No new medications given *Please follow up with your primary care provider in 2-3 days, call for an appointment. Let them know you were seen in the Emergency Department and that we ask that you be seen in follow up. We will electronically transmit a record of today's note if your PCP is in our system *If you do not have a primary care provider please contact the [facility] Resource line at [phone]. They will ask some questions about your medical history and help get you set up with a doctor in the community. *Return to Emergency Department if you should have any new, worsening or concerning symptoms, such as [fever greater than 101 F, shaking chills, worseni ng pain, persistent vomiting or other bothersome symptoms] Prescriptions: No Action atorvastatin 80 mg tablet 80 mg PO DAILY RF: 0 hydrocodone-acetaminophen 5-325 mg tablet 1 tab PO Q4-6H PRNRF: 0 melatonin 3 mg tablet 3 mg PO BEDTIME PRNRF: 0 amlodipine 5 mg tablet 5 mg PO DAILY RF: 0 aspirin [Adult Aspirin Regimen] 81 mg tablet,delayed release (DR/EC) 81 mg PO DAILY RF: 0 pantoprazole [Protonix] 40 mg tablet,delayed release (DR/EC) 40 mg PO DAILY RF: 0 gabapentin 300 mg capsule 300 mg PO DAILY RF: 0 cholecalciferol (vitamin D3) 1,000 unit capsule 1,000 unit PO DAILY RF: 0 hydrocodone-acetaminophen 5-325 mg tablet 1 tab PO Q6H PRN (Reason: pain) Qty: 10 RF: 0 Referrals: Tesha Holden MD [Primary Care Provider] -
[2020-12-25 02:45] VITALS: BP 158/73; PULSE 73; RESP 18; TEMP 36.4; O2SAT 98; BMI 24.8
--- NOTE | 2020-12-25 04:16 | PC.NURSE ---
New canister from wound care applied and vac at 125 mm/hg.
== END 2020-12-25 04:17 | disposition home or self-care (01) ==
PROVIDERS: Emergency Provider Emergency Medicine; PCP Internal Medicine
DX: T85.698A Other mechanical complication of other specified internal prosthetic devices, implants and grafts, initial encounter (principal)
CPT/HCPCS: 96365; 96367; 99281; J0878; J1335

== ENCOUNTER → 2020-12-28 13:27 | Outpatient (CLI) | payer MEDICARE, OTHER, SELFPAY | PROVIDERS: PCP Internal Medicine; Referring Provider Internal Medicine; Visit Provider Nurse Practitioner Family | DX: S31.109A Unspecified open wound of abdominal wall, unspecified quadrant without penetration into peritoneal cavity, initial encounter (principal) | CPT/HCPCS: 97605 ==

== ENCOUNTER → 2020-12-31 11:30 | Outpatient (CLI) | payer MEDICARE, OTHER, SELFPAY | PROVIDERS: PCP Internal Medicine; Referring Provider Internal Medicine; Visit Provider Family Medicine | DX: S31.109A Unspecified open wound of abdominal wall, unspecified quadrant without penetration into peritoneal cavity, initial encounter (principal); T82.898S Other specified complication of vascular prosthetic devices, implants and grafts, sequela | CPT/HCPCS: 97605; 99213 ==

== ENCOUNTER → 2021-01-03 14:07 | Outpatient (CLI) | payer MEDICARE, OTHER, SELFPAY | PROVIDERS: PCP Internal Medicine; Referring Provider Internal Medicine; Visit Provider Family Medicine | DX: S31.109A Unspecified open wound of abdominal wall, unspecified quadrant without penetration into peritoneal cavity, initial encounter (principal) | CPT/HCPCS: 97605 ==

== ENCOUNTER → 2021-01-07 13:32 | Outpatient (CLI) | payer MEDICARE, OTHER, SELFPAY | PROVIDERS: PCP Internal Medicine; Referring Provider Internal Medicine; Visit Provider Family Medicine | DX: S31.109A Unspecified open wound of abdominal wall, unspecified quadrant without penetration into peritoneal cavity, initial encounter (principal); T82.898S Other specified complication of vascular prosthetic devices, implants and grafts, sequela | CPT/HCPCS: 11042; 97605 ==

== ENCOUNTER → 2021-01-11 10:53 | Outpatient (CLI) | payer MEDICARE, OTHER, SELFPAY | PROVIDERS: PCP Internal Medicine; Referring Provider Internal Medicine; Visit Provider Family Medicine | DX: S31.501A Unspecified open wound of unspecified external genital organs, male, initial encounter (principal); T81.89XA Other complications of procedures, not elsewhere classified, initial encounter; T81.49XA Infection following a procedure, other surgical site, initial encounter | CPT/HCPCS: 97605 ==

== ENCOUNTER → 2021-01-15 10:56 | Outpatient (CLI) | payer MEDICARE, OTHER, SELFPAY | PROVIDERS: PCP Internal Medicine; Referring Provider Internal Medicine; Visit Provider Family Medicine | DX: T81.89XA Other complications of procedures, not elsewhere classified, initial encounter (principal); S31.109A Unspecified open wound of abdominal wall, unspecified quadrant without penetration into peritoneal cavity, initial encounter; T82.898S Other specified complication of vascular prosthetic devices, implants and grafts, sequela | CPT/HCPCS: 97605; 99213 ==

== ENCOUNTER → 2021-01-18 15:02 | Outpatient (CLI) | payer MEDICARE, OTHER, SELFPAY | PROVIDERS: PCP Internal Medicine; Referring Provider Internal Medicine; Visit Provider Nurse Practitioner Family | DX: T81.89XA Other complications of procedures, not elsewhere classified, initial encounter (principal); S31.109A Unspecified open wound of abdominal wall, unspecified quadrant without penetration into peritoneal cavity, initial encounter | CPT/HCPCS: 97605 ==

== ENCOUNTER → 2021-01-22 10:04 | Outpatient (CLI) | payer MEDICARE, OTHER, SELFPAY | PROVIDERS: PCP Internal Medicine; Referring Provider Internal Medicine; Visit Provider Family Medicine | DX: T81.89XA Other complications of procedures, not elsewhere classified, initial encounter (principal); S31.109A Unspecified open wound of abdominal wall, unspecified quadrant without penetration into peritoneal cavity, initial encounter; S31.109D Unspecified open wound of abdominal wall, unspecified quadrant without penetration into peritoneal cavity, subsequent encounter | CPT/HCPCS: 11042 ==

== ENCOUNTER → 2021-01-29 09:51 | Outpatient (CLI) | payer MEDICARE, OTHER, SELFPAY | PROVIDERS: PCP Internal Medicine; Referring Provider Internal Medicine; Visit Provider Family Medicine | DX: S31.501A Unspecified open wound of unspecified external genital organs, male, initial encounter (principal); T81.89XA Other complications of procedures, not elsewhere classified, initial encounter; T81.49XA Infection following a procedure, other surgical site, initial encounter; Z79.2 Long term (current) use of antibiotics; Z79.01 Long term (current) use of anticoagulants | CPT/HCPCS: 15271; Q4110 ==

== ENCOUNTER → 2021-02-05 09:49 | Outpatient (CLI) | payer MEDICARE, OTHER, SELFPAY | PROVIDERS: PCP Internal Medicine; Referring Provider Internal Medicine; Visit Provider Family Medicine | DX: S31.501A Unspecified open wound of unspecified external genital organs, male, initial encounter (principal); T81.89XA Other complications of procedures, not elsewhere classified, initial encounter; T81.49XA Infection following a procedure, other surgical site, initial encounter; Z79.2 Long term (current) use of antibiotics; Z79.01 Long term (current) use of anticoagulants | CPT/HCPCS: 99212; 99213 ==

== ENCOUNTER → 2021-02-11 14:59 | Outpatient (CLI) | payer MEDICARE, OTHER, SELFPAY | PROVIDERS: PCP Internal Medicine; Referring Provider Internal Medicine; Visit Provider Family Medicine | DX: S31.501A Unspecified open wound of unspecified external genital organs, male, initial encounter (principal); T81.89XA Other complications of procedures, not elsewhere classified, initial encounter; T81.49XA Infection following a procedure, other surgical site, initial encounter; Z79.2 Long term (current) use of antibiotics; Z79.01 Long term (current) use of anticoagulants | CPT/HCPCS: 99212; 99213 ==

== ENCOUNTER → 2021-02-18 11:29 | Outpatient (CLI) | payer MEDICARE, OTHER, SELFPAY | PROVIDERS: PCP Internal Medicine; Referring Provider Internal Medicine; Visit Provider Family Medicine | DX: S31.501A Unspecified open wound of unspecified external genital organs, male, initial encounter (principal); T81.89XA Other complications of procedures, not elsewhere classified, initial encounter; T81.49XA Infection following a procedure, other surgical site, initial encounter; Z79.2 Long term (current) use of antibiotics; Z79.01 Long term (current) use of anticoagulants; L23.1 Allergic contact dermatitis due to adhesives | CPT/HCPCS: 11042; 99213; 99214 ==

== ENCOUNTER → 2021-02-26 09:27 | Outpatient (CLI) | payer MEDICARE, OTHER, SELFPAY | PROVIDERS: PCP Internal Medicine; Referring Provider Internal Medicine; Visit Provider Family Medicine | DX: S31.501A Unspecified open wound of unspecified external genital organs, male, initial encounter (principal); T81.89XA Other complications of procedures, not elsewhere classified, initial encounter; T81.49XA Infection following a procedure, other surgical site, initial encounter; Z79.2 Long term (current) use of antibiotics; Z79.01 Long term (current) use of anticoagulants | CPT/HCPCS: 15271; Q4110 ==

== ENCOUNTER → 2021-03-05 11:00 | Outpatient (CLI) | payer MEDICARE, OTHER, SELFPAY | PROVIDERS: PCP Internal Medicine; Referring Provider Internal Medicine; Visit Provider Family Medicine | DX: S31.501A Unspecified open wound of unspecified external genital organs, male, initial encounter (principal); T81.89XA Other complications of procedures, not elsewhere classified, initial encounter; T81.49XA Infection following a procedure, other surgical site, initial encounter; Z79.2 Long term (current) use of antibiotics; Z79.01 Long term (current) use of anticoagulants | CPT/HCPCS: 99212; 99213 ==

== ENCOUNTER → 2021-03-12 11:15 | Outpatient (CLI) | payer MEDICARE, OTHER, SELFPAY | PROVIDERS: PCP Internal Medicine; Referring Provider Internal Medicine; Visit Provider Family Medicine | DX: T81.89XA Other complications of procedures, not elsewhere classified, initial encounter (principal); S31.109A Unspecified open wound of abdominal wall, unspecified quadrant without penetration into peritoneal cavity, initial encounter; T81.49XA Infection following a procedure, other surgical site, initial encounter; Z79.2 Long term (current) use of antibiotics; Z79.01 Long term (current) use of anticoagulants | CPT/HCPCS: 15271; Q4110 ==

== ENCOUNTER 2021-03-18 08:06 | Emergency (ER) | payer MEDICARE, OTHER, SELFPAY ==
[2021-03-18] VITALS (18 sets, daily range): BP systolic 125–167; BP diastolic 63–78; PULSE 90–100; RESP 16–30; TEMP 37.1; O2SAT 93–98; BMI 25.5
--- NOTE | 2021-03-18 08:21 | ED_ITS ---
HPI - Abdominal Pain General Chief Complaint: Abdominal Pain Stated Complaint: Severe abd pain, hx of abd clots/vasc surgery Time Seen by Provider: 03/18/21 08:14 History of Present Illness HPI narrative: The patient presents with right lateral abdominal pain. He was on a lot of lifting last couple days. He cannot recall a specific incident remains strained himself. 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 He was seen here 5 months ago with multiple area of stenosis and multiple thrombosis . For a period of time he required bilateral inguinal drains for wound management following the vascular procedures. 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 sites are not healing. He is on Xarelto. With the pain at this time he has no hematemesis, no hematochezia. He has no UE urinary complaints. He denies chest pain, dyspnea or palpitations. Records indicate, that at some point during his vascular care, cholelithiasis was identified. He has no fever chills. Has no dietary intolerance. Related Data Home Medications Medication Instructions Recorded Confirmed amlodipine 5 mg tablet 5 mg PO DAILY 07/21/18 07/21/18 aspirin 81 mg tablet,delayed 81 mg PO DAILY 07/21/18 07/21/18 release (Adult Aspirin Regimen) atorvastatin 80 mg tablet 80 mg PO DAILY 07/21/18 07/21/18 cholecalciferol (vitamin D3) 25 1,000 unit PO DAILY 07/21/18 07/21/18 mcg (1,000 unit) capsule gabapentin 300 mg capsule 300 mg PO DAILY 07/21/18 07/21/18 hydrocodone 5 mg-acetaminophen 325 1 tab PO Q4-6H PRN 07/21/18 07/21/18 mg tablet melatonin 3 mg tablet 3 mg PO BEDTIME PRN 07/21/18 07/21/18 pantoprazole 40 mg tablet,delayed 40 mg PO DAILY 07/21/18 07/21/18 release (Protonix) cefdinir 300 mg capsule 300 mg PO 03/18/21 doxycycline monohydrate 100 mg 100 mg PO DAILY 03/18/21 03/18/21 tablet furosemide 40 mg tablet mg 03/18/21 rivaroxaban 20 mg tablet (Xarelto) 20 mg PO DAILY 03/18/21 03/18/21 Previous Rx's Medication Instructions Recorded hydrocodone 5 mg-acetaminophen 325 1 tab PO Q6H PRN #10 tab 11/07/20 mg tablet Allergies Allergy/AdvReac Type Severity Reaction Status Date / Time No Known Drug Allergies Allergy Verified 03/18/21 08:36 Review of Systems Constitutional Constitutional: Reports as per HPI, Denies body ache(s), Denies chills, Denies fatigue, Denies fever(s) and Denies headache(s) Eyes Comments: No eye complaints ENT Ears, Nose, Mouth, and Throat: Denies headache(s), Denies mouth pain and Denies sore throat Cardiovascular Cardiovascular: Denies chest pain, Denies syncope, Denies rapid heart rate and Denies dyspnea Respiratory Respiratory: Denies chest congestion and Denies dyspnea Gastrointestinal Gastrointestinal: Reports as per HPI, Denies constipation, Denies diarrhea, Den ies nausea and Denies vomiting Genitourinary Genitourinary: Denies dysuria and Denies testicular pain Musculoskeletal Musculoskeletal: Denies back pain Integumentary/Breasts Skin/Breast: Denies rash and Reports other (No jaundice) Neurologic Neurologic: Denies confusion, Denies syncope and Denies headache(s) Psychiatric Psychiatric: Denies confusion Endocrine Endocrine: Denies fatigue Hematologic/Lymphatic On Anticoagulants: Yes Comments: On Xarelto Patient History Medical History (Updated 03/18/21 @ 16:18 by Gregg Melgoza MD) Arteriosclerotic vascular disease Chronic anticoagulation Gastroesophageal reflux disease High cholesterol Social History Smoking Status: Never smoker Smoking Status: Never smoker Substance Use Type: does not use Exam Initial Vital Signs Initial Vital Signs: Vital Signs Temperature 98.8 F 03/18/21 08:15 Pulse Rate 92 H 03/18/21 08:15 Respiratory Rate 17 03/18/21 08:15 Blood Pressure 167/78 H 03/18/21 08:15 Pulse Oximetry 98 03/18/21 08:15 Const General: cooperative, healthy appearing and comfortable Limitations: mental status not altered [facility] Head: normal to inspection, normocephalic and atraumatic Face and sinus: normal facial exam Mouth: oral mucosae normal Eyes General: appearance normal, both eyes and all related structures Conjunctivae: conjunctivae normal Sclera: sclerae normal Pupils: PERRL EOM: EOM intact bilaterally Neck Neck: No tender and No JVD Resp Auscultation: clear to auscultation bilaterally Cardio Rate: regular rate Rhythm: regular rhythm Heart Sounds: S1 normal, S2 normal and no murmurs GI Other: Right mid abdominal tenderness with mild guarding. No distension. No masses. Normal bowel sounds. Back/Spine/Pelvis Back: No CVA tenderness Thoracic/Lumbar Spine: thoracic and lumbar spine normal to inspection Skin General: no rashes or lesions noted and No jaundice Other: Healing inguinal wounds. Neuro General: patient alert, patient awake and patient oriented x3 Motor: muscle tone normal throughout Extrem General: no pedal edema and no calf tenderness Psych Mental Status: mental status grossly normal Course Course Course Narrative: Abdomen/pelvis CT identified cholecystitis, confirmed with ultrasound. The CBD was not visualized on ultrasound, I did discuss the imaging with Radiology. There allergies felt that the CBD was well visualized on CT and confirmed normal. The BC count is 22. LFTs, lipase and T bili are normal. He has cholecystitis with no evidence of choledocholithiasis. He is on Xarelto for his vascular pathology. The situation was discussed with our surgeon, Dr. Ham. The patient has multiple, recent vascular procedures. He had graft infection. He is still on antibiotics. He has been under the care of Infectious Disease, as well as the vascular team. Dr. Ham suggested transfer if there is the that option. I have discussed the case with surgery at [facility], Dr. Turk. He has agreed to see the patient in consultation. I discussed the case with [facility] hospitalist, Dr. Thomas, who has accepted the patient in transfer. The patient is pain-free after receiving Dilaudid. His vitals are stable. Given the diagnosis of cholecystitis I did give him a dose of Zosyn. He will be transferred to [facility] for ongoing care. Orders Ordered: ED Orders 03/18/21 08:21 Complete Blood Count AUTO DIFF Stat Comprehensive Metabolic Panel Stat Lipase Stat Prothrombin Time INR Stat 03/18/21 08:50 CT abdomen pelvis w con Stat 03/18/21 09:28 US abdomen limited Stat 03/18/21 11:35 COVID19 - ADMIT (FORK OPERATOR swab/PCR) Stat Sodium Chloride (Normal Saline 0.9%) 1,000 mls @ 150 mls/hr IV CONT ANYI Last Admin: 03/18/21 08:36 Dose: 150 mls/hr Documented by: DENNYS Discontinued Medications Hydromorphone HCl (Hydromorphone 0.5 Mg Inj) 0.5 mg IV NOW ONE Stop: 03/18/21 09:33 Last Admin: 03/18/21 09:48 Dose: 0.5 mg Documented by: AKUA Piperacillin Sod/Tazobactam (Sod 4.5 gm/ Sodium Chloride) 100 mls @ 200 mls/hr IV NOW ONE Stop: 03/18/21 11:33 Last Infusion: 03/18/21 12:23 Dose: 0 mls/hr Documented by: Admin: 03/18/21 11:45 Dose: 200 mls/hr Documented by: AKUA Vital Signs Vital signs: Vital Signs - 8 hr 03/18/21 08:15 03/18/21 08:30 03/18/21 09:00 Temperature 98.8 F Pulse Rate 100 H 95 H 96 H Respiratory Rate 24 16 16 Blood Pressure 167/78 H Pulse Oximetry 97 96 96 03/18/21 09:30 03/18/21 10:00 03/18/21 10:30 Temperature Pulse Rate 90 97 H 92 H Respiratory Rate 30 H 20 Blood Pressure 153/74 H 147/70 H 145/68 H Pulse Oximetry 95 94 93 03/18/21 11:00 03/18/21 11:27 03/18/21 11:30 Temperature Pulse Rate 92 H 96 H 96 H Respiratory Rate 20 Blood Pressure 129/67 153/71 H 148/64 H Pulse Oximetry 93 94 95 03/18/21 12:00 03/18/21 12:30 03/18/21 13:00 Temperature Pulse Rate 94 H 96 H 97 H Respiratory Rate Blood Pressure 136/63 150/68 H 160/70 H Pulse Oximetry 94 95 96 03/18/21 13:30 03/18/21 14:00 03/18/21 14:30 Temperature Pulse Rate 98 H 96 H 98 H Respiratory Rate Blood Pressure 145/67 H 141/68 H 137/65 Pulse Oximetry 94 96 94 03/18/21 15:00 03/18/21 15:30 03/18/21 16:00 Temperature Pulse Rate 96 H 99 H 97 H Respiratory Rate Blood Pressure 132/63 133/69 125/64 Pulse Oximetry 94 95 94 MDM - Abdominal Pain Lab Data Result diagrams: 03/18/21 08:21 03/18/21 08:21 Labs: Lab Results 03/18/21 03/18/21 03/18/21 Range/Units 08:21 08:21 08:21 WBC 22.9 H (4.5-11.0) X10^3/uL RBC 4.91 (4.5-5.9) X10^6/uL Hgb 13.0 L (13.5-17.5) g/dL Hct 40.3 L (41-53) % MCV 82.0 (80-100) fL MCH 26.5 (26-34) PG MCHC 32.3 (30-36) % RDW 17.5 H (11.6-14.8) % Plt Count 331 (150-400) X10^3/uL Neut % (Auto) 80.2 H (50-75) % Lymph % (Auto) 10.3 L (25-40) % [place] % (Auto) 7.4 (3-14) % Eos % (Auto) 1.6 L (2-4) % Baso % (Auto) 0.5 (0-2) % Neut # (Auto) 23566 H (3466-4560) /uL Lymph # (Auto) 2400 (6862-7400) /uL [place] # (Auto) 1700 H (0-900) /uL Eos # (Auto) 400 (0-450) /uL Baso # (Auto) 100 (0-100) /uL PT 29.1 H (10.1-12.7) SECONDS INR 2.6 H (0.9-1.3) Sodium 138 (137-145) mmol/L Potassium 3.7 (3.4-5.1) mmol/L Chloride 101 (98-107) mmol/L Carbon Dioxide 29 (22-32) mmol/L BUN 14 (9-20) mg/dL Creatinine 0.99 (0.66-1.25) mg/dL Estimated GFR > 60.0 (>60) mL/min BUN/Creatinine Ratio 14.1 (6-22) Glucose 173 H (80-110) mg/dL Calcium 9.0 (8.4-10.2) mg/dL Total Bilirubin 1.0 (0.2-1.3) mg/dL AST 20 (17-59) IU/L ALT 15 (<50) IU/L Alkaline Phosphatase 95 (38-126) U/L Total Protein 8.2 (6.3-8.2) g/dL Albumin 4.1 (3.5-5.0) g/dL Globulin 4.1 (1.7-4.1) g/dL Albumin/Globulin Ratio 1.0 (1.0-2.8) Lipase 51 (23-300) U/L SARS-CoV-2 (PCR) (Negative) 03/18/21 Range/Units 11:35 WBC (4.5-11.0) X10^3/uL RBC (4.5-5.9) X10^6/uL Hgb (13.5-17.5) g/dL Hct (41-53) % MCV (80-100) fL MCH (26-34) PG MCHC (30-36) % RDW (11.6-14.8) % Plt Count (150-400) X10^3/uL Neut % (Auto) (50-75) % Lymph % (Auto) (25-40) % [place] % (Auto) (3-14) % Eos % (Auto) (2-4) % Baso % (Auto) (0-2) % Neut # (Auto) (2491-0978) /uL Lymph # (Auto) (6653-8989) /uL [place] # (Auto) (0-900) /uL Eos # (Auto) (0-450) /uL Baso # (Auto) (0-100) /uL PT (10.1-12.7) SECONDS INR (0.9-1.3) Sodium (137-145) mmol/L Potassium (3.4-5.1) mmol/L Chloride (98-107) mmol/L Carbon Dioxide (22-32) mmol/L BUN (9-20) mg/dL Creatinine (0.66-1.25) mg/dL Estimated GFR (>60) mL/min BUN/Creatinine Ratio (6-22) Glucose (80-110) mg/dL Calcium (8.4-10.2) mg/dL Total Bilirubin (0.2-1.3) mg/dL AST (17-59) IU/L ALT (<50) IU/L Alkaline Phosphatase (38-126) U/L Total Protein (6.3-8.2) g/dL Albumin (3.5-5.0) g/dL Globulin (1.7-4.1) g/dL Albumin/Globulin Ratio (1.0-2.8) Lipase (23-300) U/L SARS-CoV-2 (PCR) Negative (Negative) Imaging Data CT scan - abdomen/pelvis: Radiologist's Impression: Launch?Image [address] [address] [address] Scan Report Signed Patient: Hilario Pagan MR#: [id number] : 06/13/1949 Acct:[id number] Age/Sex: 71 / M Date of Service: 03/18/21 Loc: ED Accession Number: [id number] ?? Procedure: CT kidney ureter bladder (KUB) Ordering Provider: Gregg Melgoza MD PROCEDURE:? CT KIDNEY URETER BLADDER (KUB) ? INDICATIONS:? Hematuria ? TECHNIQUE:? Axial sections were acquired from the lung bases to the pubic symphysis.? Coronal and sagittal reformats were performed.? For radiation dose reduction, the following was used: ?automated exposure control, adjustment of mA and/or kV according to patient size.? ? COMPARISON:? ? [facility], CT, CT ABDOMEN PELVIS W CON, 02/25/2019, 17:34. ? FINDINGS:? Image quality:? Excellent.? ? Lung bases:? Clear.? Small hiatal hernia.? ? Heart:? No significant findings. ? URINARY: Right Kidney: ? No stones or hydronephrosis.There is perinephric stranding. Right Ureter:? No hydroureter.? ? Left Kidney: ? No stones or hydronephrosis.There is perinephric stranding. Left Ureter:? No hydroureter.? ? Bladder:? Normal wall thickness. No stones.? Prostate is enlarged. ? ABDOMEN: Liver:? Normal in size.? Hepatic steatosis.? ? Gallbladder:? Unremarkable.? ? Biliary ducts:? Unremarkable.? ? Pancreas:? Unremarkable.? ? Spleen:? Unremarkable.? ? Adrenal Glands:? Unremarkable.? ? ? Stomach and Bowel:? Stomach, small bowel loops, and colon are normal in caliber.? There are postsurgical changes in sigmoid colon.? Moderate amount of stool in colon. Peritoneum:? No abnormal intraperitoneal fluid.? No free air.? ? Ventral Wall: ? Small fat containing periumbilical hernia.? Abdominal Nodes:? No enlarged retroperitoneal or mesenteric lymph nodes.? Vessels:? Aorta and inferior vena cava are normal in size.? ? PELVIS: Pelvic Organs:? Unremarkable.? ? Pelvic Nodes: Unremarkable. Miscellaneous: No inguinal hernias are seen. ? ? ? Bones:? Degenerative changes in lower lumbar spine.? There is moderate central canal stenosis at L3-L4 and mild central canal stenosis at L4-L5 and L5-S1. ? IMPRESSION:? ? 1. No renal stones or hydronephrosis.? There is bilateral perinephric strand ing.? A cause for hematuria is not identified. 2. Enlarged prostate. 3. Hepatic steatosis. ? Dictated by: Gogo Mackenzie M.D. on 03/18/2021 at 13:31 ? ? Approved by: Gogo Mackenzie M.D. on 03/18/2021 at 13:50?? US - abdomen: Radiologist's Impression: [place] [address] Ultrasound Report Signed Patient: Johnathan Nixon MR#: [id number] : 1955 Acct:[id number] Age/Sex: 65 / M Date of Service: 03/18/21 Loc: ED Accession Number: [id number] ?? Procedure: US abdomen limited Ordering Provider: Gregg Melgoza MD PROCEDURE: US ABDOMEN LIMITED ? INDICATIONS:? ?CHOLECYSTITIS ? TECHNIQUE:? Real-time focused scanning was performed of the abdomen, with image documentation.? ? COMPARISON:? CT abdomen and pelvis with contrast, 03/18/2021. ? FINDINGS:? Suboptimal examination.? The liver is suboptimally visualized with intercostal scan only.? Pancreas? is obscured by overlying up bowel gas.? ? Visualized liver demonstrates normal size and echotexture. ? There are small mobile gallstones. No gallbladder wall is thickened measuring up to 16 mm.? No pericholecystic fluid or sonographic Lynch's sign. ? Extrahepatic biliary duct measures 2.5 mm. ? No free fluid is present. ? IMPRESSION:? ? 1. Cholelithiasis.? There is marked gallbladder wall thickening, compatible with acute cholecystitis. ? ? The result was discussed with Dr. Melgoza. ? Dictated by: Gogo Mackenzie M.D. on 03/18/2021 at 10:56 ? ? Approved by: Gogo Mackenzie M.D. on 03/18/2021 at 10:59?? Discharge Plan Departure Patient Disposition: [facility] Clinical Impression: Acute cholecystitis, Chronic anticoagulation, Arteriosclerotic vascular disease Prescriptions: No Action atorvastatin 80 mg tablet 80 mg PO DAILY RF: 0 hydrocodone-acetaminophen 5-325 mg tablet 1 tab PO Q4-6H PRNRF: 0 melatonin 3 mg tablet 3 mg PO BEDTIME PRNRF: 0 amlodipine 5 mg tablet 5 mg PO DAILY RF: 0 aspirin [Adult Aspirin Regimen] 81 mg tablet,delayed release (DR/EC) 81 mg PO DAILY RF: 0 pantoprazole [Protonix] 40 mg tablet,delayed release (DR/EC) 40 mg PO DAILY RF: 0 gabapentin 300 mg capsule 300 mg PO DAILY RF: 0 cholecalciferol (vitamin D3) 1,000 unit capsule 1,000 unit PO DAILY RF: 0 hydrocodone-acetaminophen 5-325 mg tablet 1 tab PO Q6H PRN (Reason: pain) Qty: 10 RF: 0 furosemide 40 mg tablet RF: 0 doxycycline monohydrate 100 mg tablet 100 mg PO DAILY RF: 0 cefdinir 300 mg capsule 300 mg PO RF: 0 Xarelto 20 mg tablet 20 mg PO DAILY RF: 0 Referrals: Tesha Holden MD [Primary Care Provider] -
[2021-03-18 08:31] LABS: Add Manual Diff / Slide Review NO; Basophils Absolute Auto 100 /uL (0-100); Basophils Percent Auto 0.5 % (0-2); Eosinophils Absolute Auto 400 /uL (0-450); Eosinophils Percent Auto 1.6 % (2-4); Hematocrit 40.3 % (41-53); Lymphocytes Absolute Auto 2400 /uL (1100-4500); Lymphocytes Percent Auto 10.3 % (25-40); Mean Corpuscular HGB Conc 32.3 % (30-36); Mean Corpuscular Hemoglobin 26.5 PG (26-34); Monocytes Absolute Auto 1700 /uL (0-900); Monocytes Percent Auto 7.4 % (3-14); Neutrophils Absolute Auto 18300 /uL (1500-7000); Neutrophils Percent Auto 80.2 % (50-75); Platelet Count 331 X10^3/uL (150-400); Red Blood Cell Count 4.91 X10^6/uL (4.5-5.9); Red Cell Distribution Width 17.5 % (11.6-14.8); White Blood Cell Count 22.9 X10^3/uL (4.5-11.0)
[2021-03-18] MEDS: SODIUM CHLORIDE 0.9% 1,000 ML 150 ML IV (08:36)
[2021-03-18 08:41] LABS: Alanine Aminotransferase 15 IU/L (<50); Albumin 4.1 g/dL (3.5-5.0); Alkaline Phosphatase 95 U/L (38-126); Aspartate Aminotransferase 20 IU/L (17-59); BUN Creatinine Ratio 14.1 (6-22); Blood Urea Nitrogen 14 mg/dL (9-20); Carbon Dioxide 29 mmol/L (22-32); Chloride 101 mmol/L (98-107); Estimated Glomerular Filt Rate > 60.0 mL/min (>60); Globulin 4.1 g/dL (1.7-4.1); Glucose 173 mg/dL (80-110); HEMOLYSIS 21 (0-50); Lipase 51 U/L (23-300); Potassium 3.7 mmol/L (3.4-5.1); Sodium 138 mmol/L (137-145); Total Protein 8.2 g/dL (6.3-8.2)
--- NOTE | 2021-03-18 08:50 | DI.CT.S_ITS ---
PROCEDURE: CT ABDOMEN PELVIS W CON INDICATIONS: Right mid abdomen pain. Anticoagulated . TECHNIQUE: After the administration of intravenous contrast, axial sections acquired from the lung bases to the pubic symphysis. Coronal and sagittal reformats were performed. For radiation dose reduction, the following was used: automated exposure control, adjustment of mA and/or kV according to patient size. COMPARISON: [facility], CT, CT ANGIO ABD AORTA RUNOFF, 11/06/2020, 12:25. FINDINGS: Image quality: Excellent. Lung bases: Unremarkable. Heart: No significant findings. ABDOMEN: Liver: There is mild increased density in the liver immediately adjacent to the gallbladder, possibly representing reactive hyperemia secondary to gallbladder inflammation. There is a linear low-density area in the posterior segment right lobe of the liver which is of uncertain etiology. Cannot exclude right hepatic vein thrombosis versus isolated intrahepatic bile duct dilatation. Gallbladder: Diffuse gallbladder wall thickening and edema with mild inflammatory change in the surrounding fat. Findings are highly suspicious for acute cholecystitis. Biliary ducts: Unremarkable. Pancreas: Unremarkable. Spleen: Unremarkable. Adrenal Glands: Unremarkable. Kidneys and Ureters: Unremarkable. Stomach and Bowel: Stomach, small bowel loops, and colon are unremarkable. Peritoneum: No abnormal intraperitoneal fluid. No free air. Ventral Wall: No hernias. Abdominal Nodes: No retroperitoneal or mesenteric adenopathy by size criteria. Vessels: The infrarenal abdominal aorta and common iliac arteries are chronically thrombosed. There is a widely patent aorto bi-iliac bypass graft. Inferior vena cava is unremarkable. Celiac artery stenosis. SMA is widely patent. AUGUSTINE origin is chronically occluded. PELVIS: Pelvic Organs: Unremarkable. Bladder: Mild diffuse bladder wall thickening. Pelvic Nodes: No enlarged lymph nodes. Miscellaneous: No hernias are seen. Bones: Mild degenerative change in the lumbar spine. IMPRESSION: 1. Findings are highly consistent with acute cholecystitis. Recommend clinical correlation and possible right upper quadrant ultrasound. 2. 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 Currently, the aortobifemoral bypass graft is widely patent. 3. Cannot exclude posterior segment right hepatic vein thrombosis versus isolated intrahepatic bile duct dilatation. Dictated by: Dieter Ham M.D. on 03/18/2021 at 9:01 Approved by: Dieter Ham M.D. on 03/18/2021 at 9:19
--- NOTE | 2021-03-18 09:28 | DI.US.S_ITS ---
PROCEDURE: US ABDOMEN LIMITED INDICATIONS: ?CHOLECYSTITIS TECHNIQUE: Real-time focused scanning was performed of the abdomen, with image documentation. COMPARISON: CT abdomen and pelvis with contrast, 03/18/2021. FINDINGS: Suboptimal examination. The liver is suboptimally visualized with intercostal scan only. Pancreas is obscured by overlying up bowel gas. Visualized liver demonstrates normal size and echotexture. There are small mobile gallstones. No gallbladder wall is thickened measuring up to 16 mm. No pericholecystic fluid or sonographic Lynch's sign. Extrahepatic biliary duct measures 2.5 mm. No free fluid is present. IMPRESSION: 1. Cholelithiasis. There is marked gallbladder wall thickening, compatible with acute cholecystitis. The result was discussed with Dr. Melgoza. Dictated by: Gogo Mackenzie M.D. on 03/18/2021 at 10:56 Approved by: Gogo Mackenzie M.D. on 03/18/2021 at 10:59
[2021-03-18] MEDS: HYDROMORPHONE 0.5 MG INJ IV (09:48)
[2021-03-18] MEDS: PIPERACILLIN/TAZO 4.5 GM in SODIUM CHLORIDE 0.9% 100 ML 200 ML IV (11:45)
[2021-03-18 12:43] LABS: COVID19 - ADMIT (NP swab/PCR) Negative (Negative)
[2021-03-18 14:59] LABS: INR 2.6 (0.9-1.3); Prothrombin Time 29.1 SECONDS (10.1-12.7)
--- NOTE | 2021-03-18 15:52 | PC.NURSE ---
Report called to Freda at [facility] RN in CDU.
== END 2021-03-18 16:30 | disposition short-term general hospital (02) ==
PROVIDERS: Emergency Provider Emergency Medicine; PCP Internal Medicine
DX: K81.0 Acute cholecystitis (principal); I70.90 Unspecified atherosclerosis; Z86.718 Personal history of other venous thrombosis and embolism; R31.9 Hematuria, unspecified; Z79.01 Long term (current) use of anticoagulants; Z20.822 Contact with and (suspected) exposure to COVID-19
CPT/HCPCS: 36415; 74177; 76705; 80053; 83690; 85025; 85610; 87635; 96361; 96365; 96375; 99284; C9803; J1170; J2543; Q9967

== ENCOUNTER → 2021-03-26 10:42 | Outpatient (CLI) | payer MEDICARE, OTHER, SELFPAY | PROVIDERS: PCP Internal Medicine; Referring Provider Internal Medicine; Visit Provider Family Medicine | DX: S31.109D Unspecified open wound of abdominal wall, unspecified quadrant without penetration into peritoneal cavity, subsequent encounter (principal); T81.49XD Infection following a procedure, other surgical site, subsequent encounter; Z79.2 Long term (current) use of antibiotics; Z79.01 Long term (current) use of anticoagulants | CPT/HCPCS: 99212; 99213 ==